=== PATIENT | male | born 1955 | race Caucasian/White ===

== ENCOUNTER 2017-10-01 11:52 | Emergency (ER) | payer BC, OTHER ==
[2017-10-01 13:21] VITALS: BP 132/82
--- NOTE | 2017-10-01 13:23 | UC ---
Throat Pain/Nasal Elias HPI - HPI Summary HPI Summary: 2 days of sinus pain , pressure and cough, no fevers, with similar c/o,, patient has tried otc sinus medications without relief - History of Current Complaint Chief Complaint: UCRespiratory Stated Complaint: SINUS PRESSURE, EAR PAIN Time Seen by Provider: 10/01/17 13:11 Hx Obtained From: Patient Onset/Duration: Sudden Onset, Still Present Severity: Moderate Cough: Nonproductive Associated Signs & Symptoms: Positive: Sinus Discomfort, Nasal Discharge - Allergies/Home Medications Allergies/Adverse Reactions: Allergies Allergy/AdvReac Type Severity Reaction Status Date / Time codeine AdvReac GI Upset Verified 10/01/17 13:18 PMH/Surg Hx/FS Hx/Imm Hx Previously Healthy: Yes - Surgical History Surgical History: Yes Surgery Procedure, Year, and Place: knee arthroscopy,ZYGOMATIC ARCH FX- MANIPULATION - Family History Known Family History: Positive: None - Social History 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 Lives: With Family Alcohol Use: None Substance Use Type: None - Immunization History Most Recent Influenza Vaccination: no [id number] Review of Systems Constitutional: Negative Skin: Negative Eyes: Negative ENT: Ear Ache, Nasal Discharge, Sinus Congestion, Sinus Pain/Tenderness Respiratory: Cough Cardiovascular: Negative Gastrointestinal: Negative Genitourinary: Negative Motor: Negative Neurovascular: Negative Musculoskeletal: Negative Neurological: Headache Psychological: Negative Is Patient Immunocompromised?: No All Other Systems Reviewed And Are Negative: Yes Physical Exam Triage Information Reviewed: Yes Appearance: Well-Appearing, No Pain Distress, Well-Nourished Vital Signs Reviewed: Yes Eye Exam: Normal Eyes: Positive: Conjunctiva Clear ENT Exam: Normal ENT: Positive: Normal ENT inspection, Hearing grossly normal, Pharynx normal, Nasal congestion, Nasal drainage, TMs normal, Sinus tenderness, Uvula midline. Negative: Tonsillar swelling, Tonsillar exudate, Trismus, Muffled voice, Hoarse voice, Dental tenderness Dental Exam: Normal Neck exam: Normal Neck: Positive: Supple, Nontender, No Lymphadenopathy Respiratory Exam: Normal Respiratory: Positive: Chest non-tender, Lungs clear, Normal breath sounds, No respiratory distress, No accessory muscle use Cardiovascular Exam: Normal Cardiovascular: Positive: RRR, No Murmur, Pulses Normal, Brisk Capillary Refill Musculoskeletal Exam: Normal Musculoskeletal: Positive: Strength Intact, ROM Intact, No Edema Neurological Exam: Normal Neurological: Positive: Alert, Muscle Tone Normal Psychological Exam: Normal Psychological: Positive: Normal Response To Family Skin Exam: Normal Throat Pain/Nasal Course/Dx - Course Assessment/Plan: add flonase and continue with otc treatments for at least 5-7 more days if symptoms are continuing or worsen at any time may start antibiotics - Differential Dx/Diagnosis Provider Diagnoses: Acute sinusitis Discharge - Discharge Plan Condition: Stable Disposition: HOME Prescriptions: Amoxicillin/Clavulanate TAB* [Augmentin TAB 875*] 875 mg PO BID #20 tab Fluticasone NASAL SPRAY 50MCG* [Flonase NASAL SPRAY 50MCG*] 2 spray BOTH NARES DAILY #1 btl Patient Education Materials: Sinusitis (ED) Referrals: Roro Sotomayor MD [Primary Care Provider] - If Needed Additional Instructions: Generally speaking these sinus infections can be cleared up without antibiotics ! Use the nasal spray and continue Mucinex, sudafed and tylenol or Ibuprofen. If you are not getting any better or if you get worse please start the antibiotics--- Feel Better Soon! Alannah CHECKER IN
== END 2017-10-01 13:39 | disposition home or self-care (01) ==
LOC: UCCORT 11:52
DX: J01.90 Acute sinusitis, unspecified (principal); Z88.5 Allergy status to narcotic agent
CPT/HCPCS: 99212; G0463

== ENCOUNTER 2017-11-03 17:38 | Emergency (ER) | payer BC ==
--- NOTE | 2017-11-03 18:38 | UC ---
Skin Complaint HPI - HPI Summary HPI Summary: Pt presents with hives. He tells me that last evening he took a nap in his recliner and woke up with hives underneath his arms and on his trunk. He took benadryl with great relief. This morning had a few hives, but did not take any medication. This afternoon he noticed he still had a few spots of hives on his arms and trunk - came to . Denies fever, chills, difficulty breathing, SOB, chest pain, headache, or dizziness. No new detergents or foods. - History of Current Complaint Chief Complaint: UCSkin Time Seen by Provider: 11/03/17 18:35 Stated Complaint: SKIN COMPLAINT Hx Obtained From: Patient, Family/Glue Jointer Feeder Onset/Duration: Sudden Onset Current Severity: None - Allergy/Home Medications Allergies/Adverse Reactions: Allergies Allergy/AdvReac Type Severity Reaction Status Date / Time codeine AdvReac GI Upset Verified 11/03/17 18:35 Review of Systems Constitutional: Negative Skin: Other - Hives trunk and arms Eyes: Negative ENT: Negative Respiratory: Negative Cardiovascular: Negative Gastrointestinal: Negative Neurovascular: Negative Musculoskeletal: Negative Neurological: Negative Psychological: Negative All Other Systems Reviewed And Are Negative: Yes PMH/Surg Hx/FS Hx/Imm Hx - Additional Past Medical History Additional PMH: None Previously Healthy: Yes - Surgical History Surgical History: Yes Surgery Procedure, Year, and Place: knee arthroscopy,ZYGOMATIC ARCH FX- MANIPULATION - Family History Known Family History: Positive: None - Social History Lives: With Family Alcohol Use: None Substance Use Type: None Smoking Status (MU): Never Smoked Tobacco - Immunization History Most Recent Influenza Vaccination: no [id number] Physical Exam - Summary Physical Exam Summary: GENERAL: NAD. WDWN. No pain distress. SKIN: Scant mildly raised and erythematous wheals on trunk and b/l arms. No bleeding, drainage, streaking, or tenderness. HEENT: Head: AT/NC Eyes: EOM intact. Conjunctiva clear without inflammation or discharge. Nose: Nasal mucosa pink and moist. NTTP maxillary and frontal sinus. Throat: Posterior oropharynx without exudates, erythema, or tonsillar enlargement. Uvula midline. NECK: Supple. Nontender. No lymphadenopathy. CHEST: CTAB. No r/r/w. No accessory muscle use. Breathing comfortably and in no distress. CV: RRR. Without m/r/g. Pulses intact. Brisk cap refill. NEURO: Alert. CN II-XII grossly intact. PSYCH: Age appropriate behavior. Triage Information Reviewed: Yes Course/Dx - Course Course Of Treatment: Urticaria - improving. Advised to continue taking benadryl and will start prednisone. F/u with PCP if symptoms persist or if worsen go to ED - Diagnoses Provider Diagnoses: urticaria Discharge - Sign-Out/Discharge Documenting (check all that apply): Discharge - Discharge Plan Condition: Stable Disposition: HOME Prescriptions: predniSONE TAB* [Deltasone TAB*] 40 mg PO DAILY #10 tab Patient Education Materials: Urticaria (ED) Referrals: Roro Sotomayor MD [Primary Care Provider] - If Needed Additional Instructions: If you develop a fever, shortness of breath, chest pain, new or worsening symptoms - please call your PCP or go to the ED. 1) Keep taking benadryl once a day until your hives are completely gone 2) Wash your bedding and any materials on your chair 3) If your symptoms persist - please schedule a follow up appointment with your PCP - Billing Disposition and Condition Condition: STABLE Disposition: HOME
[2017-11-03 18:40] VITALS: BP 134/90
== END 2017-11-03 18:42 | disposition home or self-care (01) ==
LOC: UCCORT 17:38
DX: L50.9 Urticaria, unspecified (principal)
CPT/HCPCS: 99212; G0463

== ENCOUNTER 2017-12-02 16:47 | Emergency (ER) | payer BC ==
[2017-12-02 17:40] VITALS: BP 126/81
--- NOTE | 2017-12-02 18:10 | UC ---
Respiratory Complaint HPI - HPI Summary HPI Summary: C/O congestion, cough, sinus pain x 5 days. Hit left leg on a pay bag loader 1 1/2 weeks ago. C/O redness. - History of Current Complaint Chief Complaint: UCGeneralIllness Stated Complaint: SINUSES/RT LEG INJURY Time Seen by Provider: 12/02/17 18:02 Hx Obtained From: Patient Onset/Duration: Sudden Onset, Lasting Days - 5, Still Present Timing: Constant Severity Initially: Mild Severity Currently: Mild Pain Intensity: 2 Character: Cough: Nonproductive Associated Signs And Symptoms: Positive: Dyspnea, Wheezing, URI, Nasal Congestion, Sinus Discomfort - Allergies/Home Medications Allergies/Adverse Reactions: Allergies Allergy/AdvReac Type Severity Reaction Status Date / Time fluticasone [From Flonase] Allergy Intermediate hives/lip Verified 12/02/17 17: 40 swelling codeine AdvReac GI Upset Verified 12/02/17 17:40 PMH/Surg Hx/FS Hx/Imm Hx Respiratory History: Asthma - Surgical History Surgical History: Yes Surgery Procedure, Year, and Place: knee arthroscopy,ZYGOMATIC ARCH FX- MANIPULATION - Family History Known Family History: Positive: Cardiac Disease - Social History Occupation: Employed Full-time Lives: With Family Alcohol Use: None Substance Use Type: None Smoking Status (MU): Never Smoked Tobacco - Immunization History Most Recent Influenza Vaccination: no [id number] Review of Systems Skin: Bruising ENT: Sore Throat, Sinus Pain/Tenderness Respiratory: Cough Is Patient Immunocompromised?: No All Other Systems Reviewed And Are Negative: Yes Physical Exam Triage Information Reviewed: Yes Appearance: Well-Appearing, No Pain Distress, Well-Nourished Vital Signs: Initial Vital Signs Temp 98.9 F 12/02/17 17:34 Pulse 83 12/02/17 17:34 Resp 17 12/02/17 17:34 BP 126/81 12/02/17 17:34 Pulse Ox 99 12/02/17 17:34 Vital Signs Reviewed: Yes Eyes: Positive: Conjunctiva Clear ENT: Positive: Pharynx normal, TMs normal Neck exam: Normal Respiratory: Positive: Wheezing - Expiratory wheeze with coughing Cardiovascular Exam: Normal Musculoskeletal Exam: Normal Neurological Exam: Normal Psychological Exam: Normal Skin: Positive: Other - Bruising into the left medial foot. Swelling over the regalado. Diagnostic Evaluation - Laboratory O2 Sat by Pulse Oximetry: 99 Respiratory Course/Dx - Differential Dx/Diagnosis Differential Diagnosis/HQI/PQRI: Asthma, Lower Resp Infection, Sinusitis Provider Diagnoses: Acute URI. Acute sinusitis. Acute bronchospasm Discharge - Sign-Out/Discharge Documenting (check all that apply): Discharge/Admit/Transfer - Discharge Plan Condition: Stable Disposition: HOME Prescriptions: Amoxicillin PO (*) [Amoxicillin 875 MG (*)] 875 mg PO BID #20 tab Fluconazole 150 MG (NF) [Diflucan 150 mg (NF)] 150 mg PO ONCE #1 tab predniSONE TAB* [Deltasone TAB*] 20 mg PO DAILY #18 tab Referrals: Roro Sotomayor MD [Primary Care Provider] - - Billing Disposition and Condition Condition: STABLE Disposition: HOME
== END 2017-12-02 18:26 | disposition home or self-care (01) ==
LOC: UCCORT 16:47
DX: J06.9 Acute upper respiratory infection, unspecified (principal); J01.90 Acute sinusitis, unspecified; J98.01 Acute bronchospasm; Z88.5 Allergy status to narcotic agent; Z88.8 Allergy status to other drugs, medicaments and biological substances
CPT/HCPCS: 99212; G0463